=== PATIENT | female | born 1935 | race Caucasian/White ===

== ENCOUNTER 2017-03-01 14:11 | Inpatient (IN) | payer OTHER ==
[2017-03-01] MEDS ORDERED: NS 1,000 ML IV ONE (14:21)
--- NOTE | 2017-03-01 14:31 | EDPHY ---
H & P Stated Complaint: RT HIP PAIN Time Seen by Provider: 03/01/17 14:29 HPI/ROS: CHIEF COMPLAINT: Right hip pain following mechanical fall HISTORY OF PRESENT ILLNESS: The patient presents to the ED with complaints of right hip pain following a mechanical fall. The patient was hiking with her dogs when this occurred earlier today. She fell at approximately 11:00 a.m.. The patient last ate at 11:00 a.m.. The patient is not anticoagulated. She has remote history of knee replacement. The patient has moderate to severe pain with any attempted movement in her right hip. The patient was seen at the urgent care clinic and then sent to the emergency department once the diagnosis of a nondisplaced femoral neck fracture was made. The patient denies any associated numbness or weakness. REVIEW OF SYSTEMS: A comprehensive 10 point review of systems is otherwise negative aside from elements mentioned in the history of present illness. Source: Patient Exam Limitations: No limitations - Personal History Current Tetanus/Diphtheria Vaccine: Yes Tetanus Vaccine Date: 2009 - Medical/Surgical History Hx Asthma: Yes Hx Chronic Respiratory Disease: No Hx Diabetes: No Hx Cardiac Disease: No Hx Renal Disease: No Hx Cirrhosis: No Hx Alcoholism: No Hx HIV/AIDS: No Hx Splenectomy or Spleen Trauma: No Other PMH: total right knee; T&A; appy; hysterectomy; back surgery x1; [employer] - Social History Smoking Status: Light smoker - Physical Exam Exam: General Appearance: Alert, mild discomfort secondary to pain Head: Atraumatic Eyes: Pupils equal, round, reactive ENT, Mouth: No hemotympanum, no oral trauma Neck: Nontender, trachea midline Respiratory: No chest wall tender, subcutaneous air, lungs clear bilaterally Cardiovascular: Regular rate and rhythm Abdomen: Abdomen is soft and nontender, pelvis stable Skin: No lacerations, No abrasion Back: No midline T/L/S pain Extremities: Tenderness to palpation right hip over the greater trochanter Neurological: A&Ox3, normal motor function, normal sensory exam Constitutional: Initial Vital Signs Temperature (C) 36.8 C 03/01/17 14:20 Heart Rate 82 03/01/17 14:20 Respiratory Rate 18 03/01/17 14:20 Blood Pressure 162/89 H 03/01/17 14:20 O2 Sat (%) 91 L 03/01/17 14:20 O2 Delivery Mode Room Air Allergies/Adverse Reactions: codeine Allergy (Verified 03/01/17 14:48) Itching Home Medications: Medication Instructions Recorded Ibuprofen [Motrin (*)] 200 mg PO DAILY PRN 03/01/17 Medical Decision Making - Diagnostics EKG Interpretation: EKG: Complete interpretation has been separately recorded in the [facility] archive. Summary impression: Sinus rhythm, rate 70 Imaging Results: Imaging Impressions Chest X-Ray 03/01/17 14:22 Impression: Clear lungs. Negative portable chest. ED Course/Re-evaluation: I reviewed the x-ray from the outside facility which demonstrates an impacted right femoral neck fracture. I did speak with Dr. Corin Mckenna on the phone who tells me the patient will go to the operating room later this evening. She has been kept npo while in the emergency department. The patient had screening laboratory sent. Her EKG demonstrates no evidence of an arrhythmia. The patient will be admitted to the hospitalist service this evening. I spoke with Dr. Wenceslao Galdamez at 3:00 p.m. who will be the admitting physician. The patient is noted to be neurologically intact in the emergency department. The patient did receive 1 mg of IV Dilaudid and a 1 L of normal saline. Differential Diagnosis: Differential diagnosis considered includes hip fracture, pelvic fracture, metabolic abnormality, dehydration - Data Points Laboratory Results: Laboratory Results 03/01/17 14:48 03/01/17 14:48 03/01/17 03/01/17 03/01/17 14:48 14:48 14:48 WBC 13.35 10^3/uL H 10^3/uL (3.80-9.50) RBC 5.05 10^6/uL 10^6/uL (4.18-5.33) Hgb 15.4 g/dL g/dL (12.6-16.3) Hct 44.8 % % (38.0-47.0) MCV 88.7 fL fL (81.5-99.8) MCH 30.5 pg pg (27.9-34.1) MCHC 34.4 g/dL g/dL (32.4-36.7) RDW 14.6 % % (11.5-15.2) Plt Count 223 10^3/uL 10^3/uL (150-400) MPV 9.8 fL fL (8.7-11.7) Neut % (Auto) 83.2 % H % (39.3-74.2) Lymph % (Auto) 9.4 % L % (15.0-45.0) [place] % (Auto) 5.8 % % (4.5-13.0) Eos % (Auto) 0.8 % % (0.6-7.6) Baso % (Auto) 0.4 % % (0.3-1.7) Nucleat RBC Rel Count 0.0 % % (0.0-0.2) Absolute Neuts (auto) 11.09 10^3/uL H 10^3/uL (1.70-6.50) Absolute Lymphs (auto) 1.26 10^3/uL 10^3/uL (1.00-3.00) Absolute Monos (auto) 0.77 10^3/uL 10^3/uL (0.30-0.80) Absolute Eos (auto) 0.11 10^3/uL 10^3/uL (0.03-0.40) Absolute Basos (auto) 0.06 10^3/uL 10^3/uL (0.02-0.10) Absolute Nucleated RBC 0.00 10^3/uL 10^3/uL (0-0.01) Immature Gran % 0.4 % % (0.0-1.1) Immature Gran # 0.06 10^3/uL 10^3/uL (0.00-0.10) PT Pending INR Pending Sodium 136 mEq/L mEq/L (134-144) Potassium 4.1 mEq/L mEq/L (3.5-5.2) Chloride 102 mEq/L mEq/L (97-110) Carbon Dioxide 24 mEq/l mEq/l (22-31) Anion Gap 10 mEq/L mEq/L (8-16) BUN 12 mg/dL mg/dL (7-23) Creatinine 0.6 mg/dL mg/dL (0.6-1.0) Estimated GFR > 60 Glucose 76 mg/dL mg/dL (70-100) Calcium 9.3 mg/dL mg/dL (8.5-10.4) Medications Given: Discontinued Medications Hydromorphone HCl (Dilaudid) 1 mg IVP EDNOW ONE Stop: 03/01/17 15:01 Last Admin: 03/01/17 15:02 Dose: 1 mg Sodium Chloride (Ns) 1,000 mls @ 0 mls/hr IV EDNOW ONE; Wide Open PRN Reason: Protocol Stop: 03/01/17 14:22 Last Admin: 03/01/17 14:48 Dose: 1,000 mls Departure - Departure Disposition: [facility] Inpatient Acute Clinical Impression: Fracture of femoral neck, right, closed Condition: Good
--- NOTE | 2017-03-01 14:40 | CPEKG ---
Heart Rate: 70 RR Interval: 857 P-R Interval: 176 QRSD Interval: 76 QT Interval: 404 QTC Interval: 436 P [place]: 8 QRS [place]: -28 T Wave [place]: 7 EKG Severity - BORDERLINE ECG - EKG Impression: SINUS RHYTHM Electronically Signed By: Ed Saldivar 01-Mar-2017 14:40:34
[2017-03-01] MEDS ORDERED: HYDROmorphONE/DILAUDID 1 MG/ML INJ IVP ONE ×2 (15:00→16:05)
[2017-03-01 15:01] LABS: % IMMATURE GRANULYOCYTES 0.4 % (0.0-1.1); ABSOLUTE IMMATURE GRANULOCYTES 0.06 10^3/uL (0.00-0.10); ADD DIFF? NO; ADD MORPH? NO; ADD SCAN? NO; ATYPICAL LYMPHOCYTE FLAG 0 (0-99); FRAGMENT RBC FLAG 0 (0-99); HEMATOCRIT 44.8 % (38.0-47.0); HEMOGLOBIN 15.4 g/dL (12.6-16.3); LEFT SHIFT FLG 0 (0-99); LIPEMIA HEMOLYSIS FLAG 90 (0-99); MEAN CELL HEMOGLOBIN 30.5 pg (27.9-34.1); MEAN CELL HEMOGLOBIN CONCENTR. 34.4 g/dL (32.4-36.7); MEAN CELL VOLUME 88.7 fL (81.5-99.8); MEAN PLATELET VOLUME 9.8 fL (8.7-11.7); PLATELET CLUMPS FLAG 0 (0-99); PLATELET COUNT 223 10^3/uL (150-400); RED BLOOD CELL COUNT 5.05 10^6/uL (4.18-5.33); RED CELL DISTRIBUTION WIDTH 14.6 % (11.5-15.2)
[2017-03-01 15:10] LABS: ANION GAP 10 mEq/L (8-16); CALCIUM 9.3 mg/dL (8.5-10.4); CARBON DIOXIDE 24 mEq/l (22-31); CHLORIDE 102 mEq/L (97-110); CREATININE 0.6 mg/dL (0.6-1.0); GLOMERULAR FILTRATION RATE > 60; GLUCOSE 76 mg/dL (70-100); POTASSIUM 4.1 mEq/L (3.5-5.2); SODIUM 136 mEq/L (134-144)
[2017-03-01] MEDS ORDERED: BUPIVACAINE/EPI 0.5% 30 ML SDV ONE (15:23)
[2017-03-01] MEDS ORDERED: POLYMYXIN B SULFATE 500,000 UNIT/10 ML SYR IRR ONE (15:24)
[2017-03-01] MEDS ORDERED: BACITRACIN 50,000 UNITS/10 ML SYR IRR ONE (15:24)
[2017-03-01] MEDS ORDERED: oxyCODONE IR 5 MG TAB PO PRN (15:34)
[2017-03-01] MEDS ORDERED: ONDANSETRON 4 MG/2 ML VIAL IVP PRN ×2 (15:34→19:48)
[2017-03-01] MEDS ORDERED: ACETAMINOPHEN 325 MG TAB PO PRN (15:34)
[2017-03-01 15:46] LABS: INR 0.97 (0.83-1.16); PROTIME(PATIENT) 12.8 SEC (12.0-15.0)
[2017-03-01] MEDS ORDERED: LR 1,000 ML IV ONE ×2 (15:57→16:43)
--- NOTE | 2017-03-01 16:09 | GHP ---
[f rep st] HISTORY AND PHYSICAL DATE OF ADMISSION: 03/01/2017 CHIEF COMPLAINT: Fall. HISTORY OF PRESENT ILLNESS: This is an 81-year-old female, who was hiking today, walking her dog. She fell on the right side. She had immediate pain. She was unable to bear weight on it. She was about 1/4 mile from the trail head, and had to be carried. She initially presented to Urgent Care, where she was diagnosed with a hip fracture. In terms of her perioperative risk stratification, she is able to achieve 4 METS. She can do housew ork without getting short of breath. She can walk but she does not walk fast. She will eventually get short of breath after walking a few miles. She has never seen a emission technician, had a stress test, or been told that she has any coronary artery disease. PAST MEDICAL/SURGICAL HISTORY: 1. C-spine fusion. 2. L-spine fusion. 3. Right TKA. 4. Tonsillectomy. 5. Appendectomy. 6. Hysterectomy. MEDICATIONS: Please see medication reconciliation. ALLERGIES: Codeine. FAMILY HISTORY: Reviewed and noncontributory. SOCIAL HISTORY: She drinks alcohol. She smokes. She is accompanied by her . REVIEW OF SYSTEMS: A 10-point review of systems is conducted and is negative except per HPI. PHYSICAL EXAM: VITAL SIGNS: Blood pressure 162/89, heart rate 90, respiration rate 18, saturating 91% on room air. Temperature is 36.8. GENERAL: The patient is a very pleasant elderly female, lyi ng in bed, appears in pain. HEENT: Normocephalic, atraumatic. CARDIOVASCULAR: Regular rate and r hythm. No murmurs, rubs, or gallops. No elevated JVD. No lower extremity edema. PULMONARY: Lung s clear to auscultation bilaterally. ABDOMEN: Soft, nontender, nondistended. SKIN: Shows no rash . : No Barth. NEUROLOGIC: She is alert and oriented x3. She is moving all extremities. PSYCH IATRIC: Normal mood and affect. EXTREMITIES: Her right leg noted to be slightly short. She is ac tually leaning on her left hip. Her right foot is warm. Her motor and sensation are intact. LABS: White count is 13.3, basic metabolic panel is normal. INR is pending. DATA: 1. I discussed Dr. Saldivar. We will admit to med/surg. 2. EKG, which I personally viewed and interpreted, shows Q-waves in V1 and V2, with a slow R-wave p rogression. 3. Chest x-ray, which I personally viewed and interpreted, shows her lungs to be clear. IMPRESSION AND PLAN: This is an 81-year-old female with a right-sided hip fracture. 1. Hip fracture: Traumatic. Dr. Mckenna has been consulted, he would like to take her to the OR late r today. Her EKG shows Q-waves, I have ordered a stat echocardiogram. If this is okay, she will be cleared for the operating room. If she has a significantly low ejection fraction or any wall motio n abnormalities, we will consult Cardiology. This is a high-risk diagnosis. 2. Hypertension: This is due to her uncontrolled pain. 3. Leukocytosis: This is likely a stress response. I do not have any evidence of an infection. 4. Venous thromboembolism risk is high. She will need Lovenox postoperatively. /[id number]/MODL
--- NOTE | 2017-03-01 17:47 | ECHO ---
[id number] + + [address] : : [place] [address] : : [phone] + + Adult Echocardiographic Report + -+ :Name: MELANIE JACQUES Jose Alejandro Date: 03/01/2017 03:43 PM : : Hospital Admission Number: [id number] : :: 1935 Gender: Female Height: 64 in : :Age: 81 yrs Race: WH Weight: 110 lb : :Reason For Study: Eval LV Fx : : BSA: 1.5 meters 2: :History: Stat pre op Hip, Abnormal EKG : + -+ MMode/2D Measurements \T\ Calculations IVSd: 0.67 cm LVIDd: 3.8 cm FS: 34.6 % Ao root diam: 2.3 cm LVPWd: 0.79 cm LVIDs: 2.5 cm EDV(Teich): 62.7 ml ACS: 1.7 cm ESV(Teich): 22.3 ml EF(Teich): 64.4 % Normal Measurement Values: + + :LVIDd (3.5-5.7cm) IVSd (0.6-1.1cm) LVPWd (0.6-1.1cm) Aortic Root (2.0-3.7cm)Left Atrium (1.5-4.0cm): :LV Vol(d) (76-115ml) LV Vol(s) (29-48ml) Ejec Fraction (50-65%)PV Jeovany (0.6- 1.2m/s) TV Jeovany (0.4-1.0m/s) : :MV E Jeovany (0.8-1.0m/s)MV A Jeovany (0.3-1.0m/s)LVOT Jeovany (0.7-1.2m/s) Asc Ao Jeovany ( 0.9-1.8m/s) : + + Doppler Measurements \T\ Calculations MV E max jeovany: Ao V2 max: LV V1 max: PA V2 max: 91.3 cm/sec 144.0 cm/sec 106.0 cm/sec 81.4 cm/sec MV A max jeovany: Ao max PG: LV V1 max PG: PA max P.0 cm/sec 8.3 mmHg 4.5 mmHg 2.7 mmHg MV E/A: 0.87 Left Ventricle The left ventricle is normal in size. There is normal left ventricular wall thickness. The left ventricular ejection fraction is normal. There is Doppler evidence for diastolic dysfunction. Ejection Fraction = 65%. The left ventricular wall motion is normal. Right Ventricle The right ventricle is normal in size and function. Atria The left atrial size is normal. Right atrial size is normal. Mitral Valve The mitral valve is normal in structure and function. There is no evidence of mitral valve prolapse. There is no mitral valve stenosis. There is trace mitral regurgitation. Tricuspid Valve Normal tricuspid valve. There is trace tricuspid regurgitation. Right ventricular systolic pressure is normal. Aortic Valve Mild Aortic Valve Calcification. There is no aortic stenosis. There is no aortic insufficiency. Pulmonic Valve The pulmonic valve is normal in structure and function. There is no pulmonic valvular regurgitation. Great Vessels The aortic root is normal size. Pericardium/Pleural There is no pericardial effusion. Conclusion A complete two-dimensional transthoracic echocardiogram was performed (2D, M-mode, Doppler and color flow Doppler). The left ventricular ejection fraction is normal. There is Doppler evidence for diastolic dysfunction. Ejection Fraction = 65%. The left ventricular wall motion is normal. The right ventricle is normal in size and function. The left atrial size is normal. Mild Aortic Valve Calcification The mitral valve is normal in structure and function. There is trace mitral regurgitation. Normal tricuspid valve There is trace tricuspid regurgitation. Right ventricular systolic pressure is normal. The pulmonic valve is normal in structure and function. There is no pericardial effusion. Final Reading Physician: Roxanna Hernandez signed on 03/01/2017 05:45 PM Ordering Physician: Wenceslao Galdamez Performed By: Elian Foote, CS
[2017-03-01] MEDS ORDERED: ACETAMINOPHEN 500 MG TAB PO ONE (18:08)
[2017-03-01] MEDS ORDERED: ROPIVACAINE 0.2% 80 MG, EPINEPHrine 0.2 MG, KETOROLAC TROMETHAMINE 30 MG in BAG 0 ML IU ONE (18:08)
[2017-03-01] MEDS ORDERED: ceFAZolin 2 GM/DEXTROSE 100 ML IV ONE (18:08)
[2017-03-01] MEDS ORDERED: TRANEXAMIC ACID 3,000 MG in NS 50 ML IRR ONE (18:08)
--- NOTE | 2017-03-01 18:08 | PDHPUP ---
History & Physical Update H&P update statement: This history and physical update is based on an assessment of the patient which was completed after admission or registration (within 24 hours), but prior to the surgery/procedure. H&P update: H&P reviewed & patient examined, no change in patient's condition since H&P completed
--- NOTE | 2017-03-01 18:08 | PDGENHP ---
History & Physical Chief Complaint: r hip fx History of Present Illness: knocked over by dog and landed on hip Relevant Physical Exam: perrl. cta. rrr. soft and NT. rle pain tolog roll. xray - subcapital right hip fracture
[2017-03-01] MEDS ORDERED: MIDAZOLAM 2 MG/2 ML VIAL IVP ONE (18:23)
[2017-03-01] MEDS ORDERED: ACETAMINOPHEN 500 MG TAB ONE (18:34)
[2017-03-01] MEDS ORDERED: fentaNYL 100 MCG/2 ML INJ ONE (18:41)
--- NOTE | 2017-03-01 18:52 | PDANEPAE ---
ANE Past Medical History - Cardiovascular History Hx Hypertension: No Hx Arrhythmias: No Hx Chest Pain: No Hx Coronary Artery / Peripheral Vascular Disease: No Hx CHF / Valvular Disease: No Hx Palpitations: No - Pulmonary History Hx COPD: Yes Hx Asthma/Reactive Airway Disease: No Hx Recent Upper Respiratory Infection: No Hx Sleep Apnea: No - Endocrine History Hx Diabetes: No Hypothyroid: No Hyperthyroid: No Obesity: no ANE Review of Systems - Exercise capacity METS (RN): 4 METS ANE Patient History - Allergies Allergies/Adverse Reactions: codeine Allergy (Verified 03/01/17 14:48) Itching - Home Medications Home Medications: Ibuprofen [Motrin (*)] 200 mg PO DAILY PRN 03/01/17 [Last Taken Unknown] - NPO status NPO Since - Liquids (Date): 02/28/17 NPO Since - Liquids (Time): 11:00 NPO Since - Solids (Date): 03/01/17 NPO Since - Solids (Time): 11:00 - Anes Hx Anes Hx: no prior problems - Smoking Hx Smoking Status: Current some day smoker ANE Labs/Vital Signs - Labs Result Diagrams: 03/01/17 14:48 03/01/17 14:48 - Vital Signs Blood Pressure: 131/75 Heart Rate: 72 Respiratory Rate: 16 O2 Sat (%): 96 Height: 16.46 m Weight: 49.895 kg ANE Physical Exam - Airway Neck exam: decreased ROM, spinal fusion Mallampati Score: Class 2 Mouth exam: normal dental/mouth exam - Pulmonary Pulmonary: no respiratory distress, no rales or rhonchi, clear to auscultation - Cardiovascular Cardiovascular: regular rate and rhythym, no murmur, rub, or gallop - ASA Status ASA Status: II ANE Anesthesia Plan Anesthesia Plan: MAC, spinal
[2017-03-01] MEDS ORDERED: PROPOFOL/EMULSION 500 MG/50 ML BOTTLE IV ONE (18:59)
[2017-03-01] MEDS ORDERED: LIDOCAINE 2% 5 ML SDV ONE ×2 (19:00)
[2017-03-01] MEDS ORDERED: LR 500 ML IV PRN (19:48)
[2017-03-01] MEDS ORDERED: PROMETHAZINE HCL 25 MG/ML INJ IVP PRN (19:48)
[2017-03-01] MEDS ORDERED: NALOXONE HCL 0.4 MG/ML INJ IVP PRN (19:48)
[2017-03-01] MEDS ORDERED: MEPERIDINE 25 MG/ML SYR IVP PRN (19:48)
[2017-03-01] MEDS ORDERED: PHENYLEPHRINE HCL 100 MCG/ML SYR ONE (20:18)
[2017-03-01] MEDS ORDERED: BISACODYL 10 MG SUPP PR PRN (20:56)
[2017-03-01] MEDS ORDERED: MAGNESIUM HYDROXIDE 30 ML UDCUP PO PRN (20:56)
[2017-03-01] MEDS ORDERED: LACTULOSE 20 GM/30 ML UDCUP PO PRN (20:56)
[2017-03-01] MEDS ORDERED: POLYETHYLENE GLYCOL 3350 17 GM PKT PO PRN (20:56)
[2017-03-01] MEDS ORDERED: OXYCODONE/APAP 5/325 TAB PO PRN (20:56)
--- NOTE | 2017-03-01 20:56 | POSTOPPROG ---
Post Op Note Date of Operation: 03/01/17 Surgeon: Corin Mckenna Anesthesiologist: eagle Anesthesia: Epidural, IV Sedation Pre-op Diagnosis: r hip fx Procedure: r hip tree-arthroplasty with fluoro Inf/Abcess present in the surg proc area at time of surgery?: No Depth: Deep Incisional (Fascial) EBL: 100-500
[2017-03-01] MEDS ORDERED: TAPENTADOL HCL 50 MG TAB PO PRN (20:58)
[2017-03-01] MEDS ORDERED: D5W 1/2 NS W/ 20 KCl/L 1,000 ML IV SCH (21:00)
[2017-03-01] MEDS ORDERED: MEPERIDINE 25 MG/ML SYR ONE (21:10)
--- NOTE | 2017-03-01 21:19 | POSTANESTH ---
Post Anesthetic Evaluation Cardiovascular Status: Normal, Stable Respiratory Status: Normal, Stable Level of Consciousness/Mental Status: Can Participate in Eval Pain Control: Adequate, Prn Tx Ordered Nausea/Vomiting Control: Adequate, Prn Tx Ordered Complications Possibly Related to Anesthesia: None Noted
--- NOTE | 2017-03-01 22:24 | GOP ---
[f rep st] OPERATIVE REPORT DATE OF OPERATION: 03/01/2017 SURGEON: Corin Mckenna MD ANESTHESIA: Spinal with IV sedation. PREOPERATIVE DIAGNOSIS: Right hip subcapital fracture. POSTOPERATIVE DIAGNOSIS: Right hip subcapital fracture. PROCEDURE PERFORMED: Right hip hemiarthroplasty with fluoroscopy. FINDINGS: INDICATIONS: An 81-year-old female, who was knocked down by a dog earlier today. She was diagnosed with a subcapital proximal femur fracture. She was brought to the operating room as soon as time w as available. DESCRIPTION OF PROCEDURE: Patient was brought to the operating room after the right side had been i dentified as the correct side by the patient, nurse and physician. Once in the operating room, she w as given an epidural nerve block. She was then placed on a traction table with a well-padded perone al post and both legs placed in appropriate leg erickson. Fluoroscopy was used to ensure proper posit ioning of the pelvis on the table. Once in proper position, the arch table was locked into place an d the right hip and flank were sterilely prepped and draped in usual fashion using GSI solution. On ce prepped and draped, incision was made starting 2 cm lateral and inferior to the ASIS and heading in a 15-degree posterior direction. Sharp dissection carried down through the skin and subcutaneous layer. Bleeding controlled using electrocautery. The fascia overlying the TFL was identified, was then cut in line with its fibers, with the muscle belly of the TFL retracted laterally. The circumf malina vessels at the base of the fascial sheath were found. They were clamped and cauterized. Deeper dissection was carried down onto the fat overlying the anterior capsule. Blunt Cobra retractors wer e used on the superior and inferior neck extracapsularly. The capsule was removed at its anterior h fer, allowing the blunt Cobra retractors placed within the capsular portion of the hip. Oscillating saw was used to cut across hip just above the intertrochanteric line. The leg was externally rotat ed at 40 degrees. A corkscrew was placed within the femoral head. Head was removed and measured to be approximately 46-47 mm in diameter. Therefore, 46 and 47 trials were placed within the hip, not ed a 47 seemed to fit best. Attention was then turned to the proximal femur which was externally ro tated at 90 degrees, after all the bony debris had been removed from the acetabulum. The capsule wa s dissected off the anterior and superior portion of the femoral neck. Once the adequate release alexandre d been done, the leg was able to be dropped into extension and adduction. Curette was used to remov e bone from the proximal portion of the femur and a rongeur used to remove the superior portion of f emoral neck. Multiple broaches were placed inside the femoral canal until a size 4 was noted to fit securely. Trial reduction was performed, noted a 4 filled the femoral cavity well and had good leg length. Therefore, the trial was removed. The hip was re-dislocated and a #4 Accolade II 127-degr ee neck stem was put into place from [employer]. Once securely in position, more trials were done to en sure proper lengthening of the leg, found that a -3 head seemed to give better leg length. Therefor e, the leg was re-dislocated. The trunnion was washed and dried, and a 26 -3 V40 femoral head from S norma was put into place and was then covered with a 47 mm bipolar head on top of that. The leg was easily reduced. Pictures were again taken with fluoroscopy, noted to have good leg length. The wo und was thoroughly irrigated with antibiotic solution, and then had tranexamic acid placed within th e wound. A joint cocktail was injected around the proximal femur and acetabulum. The wound was the n closed in layers to include 0 Vicryl suture for the fascia overlying the TFL, and 0 Vicryl and 2-0 Vicryl were used for the subcutaneous layers. 30 cc of Marcaine was infused around the actual inci reina itself. Incision was then stapled. It was dressed with Xeroform, 4 x 4, and Tegaderm. She wa s completely undraped in the operating room. Both legs were taken out of the appropriate leg erickson . The perineal post was removed. Her leg lengths were noted to be equal. She was then transferred onto a stretcher, and sent to recovery room in good condition. /[id number]/MODL
--- NOTE | 2017-03-01 22:24 | GHP ---
[f rep st] HISTORY AND PHYSICAL DATE OF ADMISSION: 03/01/2017 CURRENT COMPLAINT: Right hip pain. HISTORY OF PRESENT ILLNESS: The patient is an 81-year-old female, who was knocked down by her dog blue shaikh today. She was diagnosed with a subcapital hip fracture. Sent to the emergency room and the n brought to the operating room soon as time is available. ALLERGIES: She describes an allergy to codeine which involves itching. MEDICATIONS: Include ibuprofen. PAST MEDICAL HISTORY: Prior medical problems include some COPD. PAST SURGICAL HISTORY: Prior surgeries include multiple plastic surgeries. SOCIAL HISTORY: She is a current smoker. PHYSICAL EXAM: HEENT: Pupils equal, round, and reactive to light. CHEST: Clear to auscultation. HEART: Regular rate and rhythm. ABDOMEN: Soft and nontender. EXTREMITIES: She has pain to log roll of the right lower extremity. IMAGING: X-ray exam reveals an impacted subcapital femur fracture on the right side. ASSESSMENT AND PLAN: The patient is status post right subcapital femur fracture. The plan is take her to the operating room, do a right hip hemiarthroplasty. /[id number]/MODL
[2017-03-01] MEDS: traMADol 50 MG TAB PO SCH (23:05)
[2017-03-01] MEDS: SENNOSIDES/DOCUSATE SODIUM TAB PO SCH (23:06)
[2017-03-02] MEDS: CEPHALEXIN 500 MG CAP PO SCH ×4 (00:08→17:56)
[2017-03-02] MEDS: HYDROCODONE/APAP 5/325 TAB PO PRN (04:27)
[2017-03-02 04:46] LABS: % IMMATURE GRANULYOCYTES 0.4 % (0.0-1.1); ABSOLUTE IMMATURE GRANULOCYTES 0.06 10^3/uL (0.00-0.10); ADD DIFF? NO; ADD MORPH? NO; ADD SCAN? NO; ATYPICAL LYMPHOCYTE FLAG 0 (0-99); FRAGMENT RBC FLAG 0 (0-99); HEMOGLOBIN 10.6 g/dL (12.6-16.3); LEFT SHIFT FLG 50 (0-99); LIPEMIA HEMOLYSIS FLAG 80 (0-99); MEAN CELL HEMOGLOBIN CONCENTR. 33.1 g/dL (32.4-36.7); MEAN CELL VOLUME 90.7 fL (81.5-99.8); MEAN PLATELET VOLUME 9.9 fL (8.7-11.7); PLATELET CLUMPS FLAG 0 (0-99); PLATELET COUNT 196 10^3/uL (150-400); RED BLOOD CELL COUNT 3.53 10^6/uL (4.18-5.33); RED CELL DISTRIBUTION WIDTH 14.6 % (11.5-15.2)
[2017-03-02 05:00] LABS: ANION GAP 6 mEq/L (8-16); CALCIUM 8.6 mg/dL (8.5-10.4); CARBON DIOXIDE 24 mEq/l (22-31); CHLORIDE 104 mEq/L (97-110); CREATININE 0.8 mg/dL (0.6-1.0); GLOMERULAR FILTRATION RATE > 60; GLUCOSE 114 mg/dL (70-100); POTASSIUM 4.3 mEq/L (3.5-5.2); SODIUM 134 mEq/L (134-144)
[2017-03-02] MEDS: traMADol 50 MG TAB PO SCH ×4 (05:19→23:51)
[2017-03-02] MEDS: ONDANSETRON DISINTEGRATING 4 MG TAB PO PRN (08:16)
[2017-03-02] MEDS ORDERED: ENOXAPARIN 40 MG/0.4 ML SYR SC SCH (09:00)
--- NOTE | 2017-03-02 10:02 | CPEKG ---
Heart Rate: 81 RR Interval: 741 P-R Interval: 160 QRSD Interval: 74 QT Interval: 368 QTC Interval: 428 P [place]: -22 QRS [place]: 31 T Wave [place]: 35 EKG Severity - BORDERLINE ECG - EKG Impression: SINUS RHYTHM EKG Impression: BORDERLINE T WAVE ABNORMALITIES Electronically Signed By: Tylor Ward 04-Mar-2017 07:57:09
[2017-03-02] MEDS ORDERED: NS W/ 20 KCl/L 1,000 ML IV SCH (10:45)
--- NOTE | 2017-03-02 10:48 | HOSPPROG ---
Hospitalist Progress Note Assessment/Plan: 81-year-old female seen seen due to stat call as the patient was in atrial fibrillation. Patient is status post a right hip hemiarthroplasty arthroplasty on 03/[address] Corin Mckenna. I was called because the patient was suddenly in atrial fibrillation with a slightly low blood pressure although she remained alert oriented and did not complain of chest pain or shortness of breath. She was unaware of the rhythm change. During my evaluation she spontaneously converted to normal sinus rhythm. She was in atrial fibrillation for approximately 15-20 minutes without symptoms. Patient reports no prior history of cardiovascular disease rhythm disturbance SD or cardiac intervention. She previously smoked tobacco but denies recent respiratory infection and does not take pulmonary medication. Patient was seen and examined at her bedside and then transferred to the PCU for cardiac monitoring and further evaluation -acute atrial fibrillation with spontaneous conversion to normal sinus rhythm -COPD possible secondary to prior to tobacco use -right hip tree arthroplasty on 03/[address] Corin Mckenna and currently doing well. -hypertension and currently normotensive. -leukocytosis on presentation and persistent at this time. No signs of active infection. Chest x-ray was reviewed by myself showing borderline cardiomegaly without active pulmonary disease. Prior ECGs were reviewed showing normal sinus rhythm without ectopy or signs of ischemia. There is low voltage in the frontal plane and poor R-wave progression although this is possibly secondary to positioning or hyperinflation. ECG done at the time of this event failed to capture the atrial fibrillation as she spontaneously converted. Echocardiogram was reviewed showing normal LV function with an EF of 65%, diastolic dysfunction, and left atrium that is of normal size with no significant valvular dysfunction. Plan: Transferred to the PCU for cardiac monitoring, troponin serially, lactic acid, and consider beta-yari for stop repeat rate suppression and control. Time 60 minutes of critical care time Subjective: Alert slightly anxious female. She does not complain of chest pain shortness of breath cough nausea vomiting. Abduct denies abdominal distress she is unaware of the rhythm disturbance. Objective: Vital Signs Temp Pulse Resp BP Pulse Ox 36.5 C 77 13 103/59 L 98 03/02/17 09:47 03/02/17 09:47 03/02/17 09:47 03/02/17 09:47 03/02/17 09:47 Laboratory Results 03/02/17 04:19 03/01/17 03/02/1703/03/17 05:59 05:59 05:59 Intake Total 2150 Output Total 200 Balance 1950 PT 12.8 SEC (12.0-15.0) 03/01/17 14:48 INR 0.97 (0.83-1.16) 03/01/17 14:48 - Time Spent With Patient Time Spent with Patient: greater than 35 minutes Time Spent with Patient: Greater than 35 minutes spent on this patients care, greater than 50% of time spent counseling, educating, and coordinating care regarding the above mentioned plan. - Pending Discharge Pending Discharge Within 24 Hours: No Pending Discharge Within 48 Hours: Yes Pending Discharge Date: 03/04/17 Pending Discharge Time: 11:00 - Physical Exam Constitutional: no apparent distress Eyes: PERRL, anicteric sclera Ears, Nose, Mouth, Throat: moist mucous membranes, hearing normal, ears appear normal Cardiovascular: irregularly irregular, other (Monitor showed atrial fibrillation with RVR at approximately 150-145. She spontaneously converted within 20 minutes. Exam at that time showed a regular rate and rhythm in sinus rhythm with us soft systolic ejection murmur JVD was not elevated) Respiratory: no respiratory distress, no rales or rhonchi, clear to auscultation , other (No chest wall tenderness) Gastrointestinal: normoactive bowel sounds, soft, non-tender abdomen, no palpable masses Genitourinary: no bladder fullness Skin: warm, other (No signs of infection erythema or tenderness at the surgical site) Musculoskeletal: full muscle strength, other (Surgical wound of the right hip appears to be healing well without significant erythema or induration. There is no signs of ecchymosis) Neurologic: AAOx3, CN II-XII Intact Psychiatric: interacting appropriately ICD10 Worksheet Patient Problems: Problems Problem Status Onset Fracture of femoral neck, right, closed Acute
[2017-03-02 11:14] LABS: ANION GAP 8 mEq/L (8-16); CALCIUM 8.5 mg/dL (8.5-10.4); CARBON DIOXIDE 21 mEq/l (22-31); CHLORIDE 101 mEq/L (97-110); CREATININE 0.9 mg/dL (0.6-1.0); GLOMERULAR FILTRATION RATE > 60; GLUCOSE 109 mg/dL (70-100); MAGNESIUM 1.7 mg/dL (1.6-2.3); POTASSIUM 4.9 mEq/L (3.5-5.2); SODIUM 130 mEq/L (134-144)
[2017-03-02] MEDS: RIVAROXABAN 10 MG TAB PO SCH (11:20)
[2017-03-02] MEDS: SENNOSIDES/DOCUSATE SODIUM TAB PO SCH ×2 (11:20→20:37)
[2017-03-02 11:25] LABS: TROPONIN I < 0.012 ng/mL (0.000-0.034)
--- NOTE | 2017-03-02 14:40 | SOAPPROG ---
SOAP Progress Note Assessment/Plan: Assessment: Plan: Subjective: sleeping comfortably so spoke with daughter who states she walked to bathroom daughter states dressing has been doing fine pt sleeping on her side comfortably cont PT await cardio input and treatment Objective: Vital Signs Temp Pulse Resp BP Pulse Ox 37.1 C 75 11 L 106/69 93 03/02/17 12:06 03/02/17 11:57 03/02/17 11:57 03/02/17 11:57 03/02/17 11:57 Laboratory Results 03/02/17 04:19 03/02/17 10:30 03/01/17 03/02/17 03/03/17 05:59 05:59 05:59 Intake Total 2150 440 Output Total 200 870 Balance 1950 -430 PT 12.8 SEC (12.0-15.0) 03/01/17 14:48 INR 0.97 (0.83-1.16) 03/01/17 14:48 ICD10 Worksheet Patient Problems: Problems Problem Status Onset Fracture of femoral neck, right, closed Acute
[2017-03-03 04:50] LABS: HEMATOCRIT 23.9 % (38.0-47.0)
[2017-03-03] MEDS: traMADol 50 MG TAB PO SCH ×3 (05:50→18:09)
[2017-03-03 08:11] LABS: ANION GAP 2 mEq/L (8-16); CALCIUM 8.2 mg/dL (8.5-10.4); CARBON DIOXIDE 27 mEq/l (22-31); CHLORIDE 99 mEq/L (97-110); CREATININE 0.8 mg/dL (0.6-1.0); GLOMERULAR FILTRATION RATE > 60; GLUCOSE 99 mg/dL (70-100); POTASSIUM 4.2 mEq/L (3.5-5.2); SODIUM 128 mEq/L (134-144)
[2017-03-03] MEDS ORDERED: NS 500 ML IV ONE ×2 (09:02→15:13)
--- NOTE | 2017-03-03 09:07 | HOSPPROG ---
Hospitalist Progress Note Assessment/Plan: # L hip fracture, POD#2, Dr Mckenna # atrial fibrillation - spontaneously converted to NSR - BP too low for BB - no AC given short duration of a-fib - will consider asa - outpatient monitoring # suspected acute on chronic hypoxic resp failure - in setting of new a-fib, must r/o PE; check CTA, trop # hyponatremia - suspect hypovolemic in setting of anemia - check Karin, Uosm - 1/2L NS bolus, then recheck Na # acute blood loss anemia - d/t surgery # suspected COPD # leukocytosis - no evidence of infection # tobacco use # vte ppx - low dose Xarelto Subjective: resting comfortably; no CP, no SOB Objective: Vital Signs Temp Pulse Resp BP Pulse Ox 36.4 C 89 16 106/41 L 73 L 03/03/17 07:45 03/03/17 07:45 03/03/17 07:45 03/03/17 07:45 03/03/17 08:20 Laboratory Results 03/03/17 03:51 03/03/17 07:43 03/02/17 03/03/17 03/04/17 05:59 05:59 05:59 Intake Total 2150 1490 Output Total 200 1120 Balance 1950 370 PT 12.8 SEC (12.0-15.0) 03/01/17 14:48 INR 0.97 (0.83-1.16) 03/01/17 14:48 - Physical Exam Constitutional: no apparent distress, appears nourished Cardiovascular: regular rate and rhythym, no murmur, rub, or gallop Respiratory: no respiratory distress, no rales or rhonchi, clear to auscultation Gastrointestinal: normoactive bowel sounds, soft, non-tender abdomen, no palpable masses ICD10 Worksheet Patient Problems: Problems Problem Status Onset Fracture of femoral neck, right, closed Acute
[2017-03-03] MEDS: RIVAROXABAN 10 MG TAB PO SCH (09:16)
[2017-03-03] MEDS: SENNOSIDES/DOCUSATE SODIUM TAB PO SCH ×2 (09:16→20:09)
[2017-03-03] MEDS ORDERED: IOPAMIDOL (ISOVUE 370) 100 ML BTL IV ONE (09:38)
[2017-03-03] MEDS: NICOTINE 21 MG/24 HR PATCH TD SCH (14:19)
[2017-03-03 15:01] LABS: ANION GAP 4 mEq/L (8-16); CALCIUM 8.1 mg/dL (8.5-10.4); CARBON DIOXIDE 26 mEq/l (22-31); CHLORIDE 100 mEq/L (97-110); CREATININE 0.7 mg/dL (0.6-1.0); GLOMERULAR FILTRATION RATE > 60; GLUCOSE 125 mg/dL (70-100); POTASSIUM 4.3 mEq/L (3.5-5.2); SODIUM 130 mEq/L (134-144)
[2017-03-03] MEDS: HYDROCODONE/APAP 5/325 TAB PO PRN (20:09)
[2017-03-04] MEDS: traMADol 50 MG TAB PO SCH ×4 (00:10→17:58)
[2017-03-04 04:57] LABS: % IMMATURE GRANULYOCYTES 1.2 % (0.0-1.1); ABSOLUTE IMMATURE GRANULOCYTES 0.07 10^3/uL (0.00-0.10); ABSOLUTE NRBC COUNT 0.02 10^3/uL (0-0.01); ADD DIFF? NO; ADD MORPH? NO; ADD SCAN? NO; ATYPICAL LYMPHOCYTE FLAG 0 (0-99); FRAGMENT RBC FLAG 0 (0-99); HEMATOCRIT 21.2 % (38.0-47.0); LEFT SHIFT FLG 20 (0-99); LIPEMIA HEMOLYSIS FLAG 80 (0-99); MEAN CELL HEMOGLOBIN 30.7 pg (27.9-34.1); MEAN PLATELET VOLUME 10.6 fL (8.7-11.7); NRBC-AUTO% 0.4 % (0.0-0.2); PLATELET CLUMPS FLAG 0 (0-99); PLATELET COUNT 133 10^3/uL (150-400); RED BLOOD CELL COUNT 2.28 10^6/uL (4.18-5.33); RED CELL DISTRIBUTION WIDTH 14.4 % (11.5-15.2)
[2017-03-04 05:11] LABS: ANION GAP 2 mEq/L (8-16); CALCIUM 8.3 mg/dL (8.5-10.4); CARBON DIOXIDE 27 mEq/l (22-31); CHLORIDE 102 mEq/L (97-110); CREATININE 0.7 mg/dL (0.6-1.0); GLOMERULAR FILTRATION RATE > 60; GLUCOSE 102 mg/dL (70-100); POTASSIUM 4.7 mEq/L (3.5-5.2); SODIUM 131 mEq/L (134-144)
[2017-03-04] MEDS: SENNOSIDES/DOCUSATE SODIUM TAB PO SCH ×2 (09:15→21:15)
[2017-03-04] MEDS: NICOTINE 21 MG/24 HR PATCH TD SCH (09:15)
[2017-03-04] MEDS: RIVAROXABAN 10 MG TAB PO SCH (12:43)
--- NOTE | 2017-03-04 13:32 | SOAPPROG ---
SOAP Progress Note Assessment/Plan: Assessment: Plan: -s/p L hemiarthroplasty - clear from orhto to d/c home - full WBAT, no precautions - keep dressing on, may shower over dressing - follow up in office within 2 weeks of discharge 03/04/17 13:31 Subjective: Doing well, reports minimal pain, did PT today, feels she is ready to go home Objective: Vital Signs Temp Pulse Resp BP Pulse Ox 36.8 C 74 20 115/63 85 L 03/04/17 11:45 03/04/17 11:45 03/04/17 11:45 03/04/17 11:45 03/04/17 12:54 Laboratory Results 03/04/17 03:40 03/04/17 03:40 03/03/17 03/04/17 03/05/17 05:59 05:59 05:59 Intake Total 1490 700 Output Total 1120 950 150 Balance 370 -250 -150 PT 12.8 SEC (12.0-15.0) 03/01/17 14:48 INR 0.97 (0.83-1.16) 03/01/17 14:48 Dressing CDI, compartments soft, NVI, calf NT, neg Homman's - Time Spent With Patient Time Spent With Patient: 15 - Pending Discharge Pending Discharge Within 24 Hours: No Pending Discharge Within 48 Hours: No ICD10 Worksheet Patient Problems: Problems Problem Status Onset Fracture of femoral neck, right, closed Acute
--- NOTE | 2017-03-04 14:34 | HOSPPROG ---
Hospitalist Progress Note Assessment/Plan: # L hip fracture, POD#3, Dr Mckenna # atrial fibrillation - spontaneously converted to NSR - BP too low for BB - no AC given short duration of a-fib - will consider asa on discharge - outpatient event monitoring # suspected acute on chronic hypoxic resp failure - no PE - underlying COPD # hyponatremia - hypovolemic; better with IVF # acute blood loss anemia - d/t surgery; continues to fall - hold ppx xarelto - recheck H/H today and tomorrow # COPD # tobacco use # vte ppx - SCDs # dispo - cleared by ortho; not stable for dc today given worsening anemia Subjective: frustrated with being in the hospital Objective: Vital Signs Temp Pulse Resp BP Pulse Ox 36.8 C 74 20 115/63 85 L 03/04/17 11:45 03/04/17 11:45 03/04/17 11:45 03/04/17 11:45 03/04/17 12:54 Laboratory Results 03/04/17 03:40 03/04/17 03:40 03/03/17 03/04/17 03/05/17 05:59 05:59 05:59 Intake Total 1490 700 Output Total 1120 950 150 Balance 370 -250 -150 PT 12.8 SEC (12.0-15.0) 03/01/17 14:48 INR 0.97 (0.83-1.16) 03/01/17 14:48 - Physical Exam Constitutional: no apparent distress, appears nourished Cardiovascular: regular rate and rhythym, no murmur, rub, or gallop Respiratory: no respiratory distress, no rales or rhonchi, clear to auscultation Gastrointestinal: normoactive bowel sounds, soft, non-tender abdomen, no palpable masses ICD10 Worksheet Patient Problems: Problems Problem Status Onset Fracture of femoral neck, right, closed Acute
[2017-03-04 15:23] LABS: HEMATOCRIT 19.9 % (38.0-47.0)
[2017-03-04 15:29] LABS: HEMOGLOBIN 6.5 g/dL (12.6-16.3)
[2017-03-04] MEDS: ONDANSETRON DISINTEGRATING 4 MG TAB PO PRN (21:15)
[2017-03-04] MEDS: HYDROCODONE/APAP 5/325 TAB PO PRN (21:16)
[2017-03-05 03:39] VITALS: RESP 16
[2017-03-05] MEDS: traMADol 50 MG TAB PO SCH ×3 (03:58→11:38)
[2017-03-05 04:32] LABS: % IMMATURE GRANULYOCYTES 0.4 % (0.0-1.1); ABSOLUTE IMMATURE GRANULOCYTES 0.02 10^3/uL (0.00-0.10); ADD DIFF? NO; ADD MORPH? NO; ADD SCAN? NO; ATYPICAL LYMPHOCYTE FLAG 0 (0-99); FRAGMENT RBC FLAG 0 (0-99); HEMATOCRIT 26.4 % (38.0-47.0); HEMOGLOBIN 8.8 g/dL (12.6-16.3); LEFT SHIFT FLG 0 (0-99); LIPEMIA HEMOLYSIS FLAG 80 (0-99); MEAN CELL HEMOGLOBIN 30.3 pg (27.9-34.1); MEAN CELL HEMOGLOBIN CONCENTR. 33.3 g/dL (32.4-36.7); MEAN PLATELET VOLUME 10.1 fL (8.7-11.7); PLATELET CLUMPS FLAG 0 (0-99); PLATELET COUNT 184 10^3/uL (150-400); RED CELL DISTRIBUTION WIDTH 14.2 % (11.5-15.2)
[2017-03-05 05:11] LABS: ANION GAP 5 mEq/L (8-16); CALCIUM 8.2 mg/dL (8.5-10.4); CARBON DIOXIDE 25 mEq/l (22-31); CHLORIDE 101 mEq/L (97-110); CREATININE 0.7 mg/dL (0.6-1.0); GLOMERULAR FILTRATION RATE > 60; GLUCOSE 94 mg/dL (70-100); POTASSIUM 4.3 mEq/L (3.5-5.2); SODIUM 131 mEq/L (134-144)
[2017-03-05] MEDS: HYDROCODONE/APAP 5/325 TAB PO PRN (05:42)
[2017-03-05] MEDS: NICOTINE 21 MG/24 HR PATCH TD SCH (09:47)
[2017-03-05] MEDS: SENNOSIDES/DOCUSATE SODIUM TAB PO SCH (09:50)
[2017-03-05 10:28] LABS: HEMATOCRIT 26.5 % (38.0-47.0); HEMOGLOBIN 9.1 g/dL (12.6-16.3)
--- NOTE | 2017-03-05 11:11 | HOSPPROG ---
Hospitalist Progress Note Assessment/Plan: # L hip fracture, POD#4, Dr Mckenna # atrial fibrillation - spontaneously converted to NSR - BP too low for BB - no AC given short duration of a-fib - will consider asa on discharge - outpatient event monitoring # suspected acute on chronic hypoxic resp failure - no PE - underlying COPD # hyponatremia - hypovolemic; better with IVF # acute blood loss anemia - d/t surgery; continues to fall - hold ppx xarelto - recheck H/H today and tomorrow # COPD # tobacco use # vte ppx - SCDs restart NoAC # dispo - cleared by ortho; not stable for dc today given worsening anemia Subjective: very anxious for dc Objective: Vital Signs Temp Pulse Resp BP Pulse Ox 36.9 C 100 16 112/60 83 L 03/05/17 03:39 03/05/17 03:39 03/05/17 03:39 03/05/17 03:39 03/05/17 03:39 Laboratory Results 03/05/17 10:20 03/05/17 03:44 03/04/17 03/05/17 03/06/17 05:59 05:59 05:59 Intake Total 700 1430 Output Total 950 450 Balance -250 980 PT 12.8 SEC (12.0-15.0) 03/01/17 14:48 INR 0.97 (0.83-1.16) 03/01/17 14:48 - Physical Exam Constitutional: no apparent distress, appears nourished Eyes: PERRL, anicteric sclera Ears, Nose, Mouth, Throat: moist mucous membranes, hearing normal Cardiovascular: regular rate and rhythym, no murmur, rub, or gallop Respiratory: no respiratory distress, no rales or rhonchi Gastrointestinal: normoactive bowel sounds, soft, non-tender abdomen Genitourinary: no bladder fullness, No vidal in urethra Skin: warm, normal color Musculoskeletal: full muscle strength, no muscle tenderness Neurologic: AAOx3, sensation intact bilaterally ICD10 Worksheet Patient Problems: Problems Problem Status Onset Fracture of femoral neck, right, closed Acute
[2017-03-05 11:52] VITALS: BP 137/72; PULSE 75; TEMP 98; O2SAT 99
--- NOTE | 2017-03-05 11:56 | ASMTCMCOM ---
CM Note CM Note Notes: Met w/ pt for dispo planning. Pt is still agreeable to [facility] PT/OT. Spoke w/ Sergio at [facility] and confirmed address/phone number. Pt is being d/c home today w/ . Faxed d/c packet to [facility]. RN to call report. Date Signed: 03/05/2017 11:26 AM Electronically Signed By:Maureen Whyte
--- NOTE | 2017-03-05 12:02 | GDS ---
[f rep st] DISCHARGE SUMMARY DISCHARGE DIAGNOSES: 1. Right hip fracture status post right hemiarthroplasty. 2. Mechanical fall. 3. Transient atrial fibrillation. 4. Acute blood loss anemia. 5. Tobacco use. HISTORY: Please see admission history and physical by Dr. Wenceslao Galdamez. HOSPITAL COURSE: The patient presented with a mechanical fall. She underwent an uncomplicated surg gianfranco. She had brief and self-limited postoperative atrial fibrillation. She did have significant bl ood loss anemia, with a hemoglobin that fell from 15 on admission to 6.5. She received a unit of pa cked cells and has remained stable. DISCHARGE MEDICATIONS: She is discharged on Xarelto, Merom, and MiraLAX, as well as her other medic ations. DISPOSITION: She is discharged home. She is cleared by PT/OT, and she is very anxious to go home a nd not to custodial facility. /[id number]/MODL
--- NOTE | 2017-03-05 17:03 | PDIAF ---
- Diagnosis Diagnosis: hip fracture Code Status: Do Not Resuscitate - Medication Management Discharge Medications: Medications to Continue on Transfer Ibuprofen [Motrin (*)] 200 mg PO DAILY PRN 03/01/17 [Last Taken Unknown] Hydrocodone/APAP 5/325 [[place] 5/325 (*)] 1 - 2 tab PO Q3HRS PRN #30 tab [Last Taken Unknown] Polyethylene Glycol 3350 [Miralax 17 gm (*)] 17 gm PO DAILY #20 pkt 03/05/17 [ Last Taken Unknown] Rivaroxaban [Xarelto 10mg (*)] 10 mg PO DAILY #25 tab 03/05/17 [Last Taken Unknown] Discharge Medications: Refer to the Discharge Home Medication list for PRN reason. - Orders Services needed: Registered Nurse (hip), Physical Therapy - Follow Up Care Current Providers and Referrals: Patient,NotPresent [Unknown] - As per Instructions
--- NOTE | 2017-03-14 17:28 | PQFORM ---
PHYSICIAN QUERY FORM Needs Your Response This query form is being sent to you to assure this patient record is coded properly. Please respond to the question below: ORDNANCE ENGINEERING TECHNICIAN QUESTION: Dear Dr. Ma, In reviewing this patients medical record it is noted in the Hospitalist progress notes dated 03/02-03/05 that the patient was suspected to have 'Acute on Chronic hypoxic respiratory failure' . Patient was also diagnosed with COPD. In the Hospitalist Progress Note dated 03/03 patient was said to be at 'high risk for hypoxia.' On 03/02 patients respiratory rate was noted to be at 11. After study, should the diagnosis of 'Acute on Chronic hypoxic respiratory failure' be included in the Discharge Summary? Yes ____X___ No Other more appropriate diagnosis Unable to determine Thank you HOLLY Nina HIM/Coding Dept. [phone] INSTRUCTIONS FOR RESPONSE: Answer question by clicking on the "Edit Document" button. Move cursor to area below the stars. When complete, hit "Save." Click on the "Sign" button, then click "Sign" again. Type in your PIN and hit "Enter." MTDD
== END 2017-03-05 14:00 | disposition home health service (06) | DRG 469 ==
LOC: EDUNIT# → OBSVTOIN 15:34 → F3N 21:30 → F2W 03-02 09:30
PROVIDERS: ADMIT Student in an Organized Health Care Education/Training Program; ATTEND Student in an Organized Health Care Education/Training Program
PROC: 0SRR0JZ Replacement of Right Hip Joint, Femoral Surface with Synthetic Substitute, Open Approach (ICD-10-PCS; principal; 2017-03-01 16:30)
PROC: 30233N1 Transfusion of Nonautologous Red Blood Cells into Peripheral Vein, Percutaneous Approach (ICD-10-PCS; 2017-03-04)
DX: S72.001A Fracture of unspecified part of neck of right femur, initial encounter for closed fracture (principal); J96.21 Acute and chronic respiratory failure with hypoxia; D62 Acute posthemorrhagic anemia; I48.91 Unspecified atrial fibrillation; W18.31XA Fall on same level due to stepping on an object, initial encounter; Y93.01 Activity, walking, marching and hiking; Y92.828 Other wilderness area as the place of occurrence of the external cause; I10 Essential (primary) hypertension; J44.9 Chronic obstructive pulmonary disease, unspecified; Z72.0 Tobacco use; Z96.659 Presence of unspecified artificial knee joint
CPT/HCPCS: 96374; 97116-GP; 97161-GP; 97165-GO; 97530-GP; G8978-GP-CJ; G8979-GP-CI; G8980-GP-CI; G8987-GO-CJ; G8988-GO-CI; J0171; J0690; J1170; J1885; J2250; J2370; J2704; J2795; J3010; P9016; Q9967

== ENCOUNTER → 2017-03-01 | Outpatient (CLI) | payer OTHER | LOC: GIMAGING 12:20 | PROVIDERS: ATTEND Nurse Practitioner Family | DX: S72.001A Fracture of unspecified part of neck of right femur, initial encounter for closed fracture (principal); S69.91XA Unspecified injury of right wrist, hand and finger(s), initial encounter | CPT/HCPCS: 73110-PO; 73502-PO ==

== ENCOUNTER → 2018-07-13 | Outpatient (CLI) | payer OTHER | LOC: FCPNEURO 21:00 | PROVIDERS: ATTEND Student in an Organized Health Care Education/Training Program | DX: G47.33 Obstructive sleep apnea (adult) (pediatric) (principal) ==

== ENCOUNTER → 2018-08-27 | Outpatient (CLI) | payer OTHER | LOC: FIMAGING 13:17 | PROVIDERS: ATTEND Internal Medicine | DX: G47.33 Obstructive sleep apnea (adult) (pediatric) (principal); R05 Cough; R19.7 Diarrhea, unspecified; R53.83 Other fatigue ==